=== PATIENT | male | born 1970 | race African-American/Black ===

== ENCOUNTER 2017-04-05 13:42 | Emergency (ER) | payer BC ==
--- NOTE | 2017-04-05 14:23 | RAD ---
AP VIEW OF CHEST: Date: 04/05/17 INDICATION: Syncope. IMPRESSION: No acute cardiopulmonary abnormality. The examination is not appreciably changed from the comparison dated 02/16/13. POS: [facility]
[2017-04-05] MEDS ORDERED: Lidocaine 1% w/Epinephrine 1:200K 30 ML VIAL ONE (14:36)
[2017-04-05] MEDS ORDERED: Adacel (T-DAP) 0.5 ML VIAL ONE ×2 (14:36→14:38)
== END 2017-04-05 15:10 | disposition home or self-care (01) ==
LOC: ERS 13:42
DX: S01.01XA Laceration without foreign body of scalp, initial encounter (principal); R55 Syncope and collapse; J40 Bronchitis, not specified as acute or chronic; Z23 Encounter for immunization; I10 Essential (primary) hypertension; Z79.899 Other long term (current) drug therapy; W01.190A Fall on same level from slipping, tripping and stumbling with subsequent striking against furniture, initial encounter
CPT/HCPCS: 12002; 71010; 90471; 90715; 93005; 94760